=== PATIENT | female | born 1935 | race Caucasian/White ===

== ENCOUNTER 2017-06-14 19:55 | Inpatient (IN) | payer MEDICARE, MEDICAID ==
[~2017-06-14] VITALS: Ht 157.5 cm; Wt 74.0 kg
[~2017-06-14 19:55] MED LIST: ALIS150T PO; AMLO10TA PO; CALC-793 PO; FURO-150 PO; GABA-532 PO; HYDR-565 PO; HYDR500C2 PO; LACT1CAP65 PO; MAGN400T29 PO; PANT-47 PO; PHYT100T PO; VALS320T2 PO
[2017-06-14] MEDS ORDERED: morphine 5 MG/ML injection IV ONE (20:45)
[2017-06-14] MEDS ORDERED: ondansetron/PF 4mg/2ml inj IV ONE (20:45)
[2017-06-14] MEDS ORDERED: temazepam 15mg capsule PO PRN (21:00)
[2017-06-14 21:21] LABS: BASOPHILS # (AUTO) 0.1 X10'3 (0-0.2); BASOPHILS % (AUTO) 0.8 % (0-1); EOSINOPHILS # (AUTO) 0.4 X10'3 (0-0.9); EOSINOPHILS % (AUTO) 2.5 % (0-6); HEMATOCRIT 37.3 % (35.0-45.0); HEMOGLOBIN 11.8 g/dl (12.0-16.0); LYMPHOCYTES # (AUTO) 1.5 X10'3 (1.1-4.8); LYMPHOCYTES % (AUTO) 10.6 % (21-51); MEAN CORPUSCULAR HEMOGLOBIN 32.9 PG (27.0-31.0); MEAN CORPUSCULAR HGB CONC 31.6 % (33.0-36.5); MEAN PLATELET VOLUME 7.4 FL (7.4-10.4); MONOCYTES # (AUTO) 0.5 X10'3 (0-0.9); MONOCYTES % (AUTO) 3.3 % (2-12); NEUTROPHILS % (AUTO) 82.8 % (42-75); PLATELET COUNT 432 X10'3 (140-440); RED BLOOD COUNT 3.58 X10'6 (4.20-5.60); RED CELL DISTRIBUTION WIDTH 27.1 % (11.5-14.5); WHITE BLOOD COUNT 14.5 X10'3 (4.5-11.0)
[2017-06-14] MEDS ORDERED: morphine sulfate 8 MG/ML SYRINGE IV ONE ×3 (21:30→23:55)
[2017-06-14 21:32] LABS: PROTHROMBIN TIME 10.3 SECONDS (9.0-12.0)
[2017-06-14 21:35] LABS: ALANINE AMINOTRANSFERASE 14 U/L (12-78); ALBUMIN 3.2 G/DL (3.4-5.0); ALBUMIN/GLOBULIN RATIO 0.8 (1.1-1.5); ALKALINE PHOSPHATASE 148 IU/L (46-116); ANION GAP 8 (8-16); ASPARTATE AMINO TRANSFERASE 11 U/L (10-37); BILIRUBIN,TOTAL 0.3 MG/DL (0.1-1.0); BLOOD UREA NITROGEN 19 MG/DL (7-18); BUN/CREATININE RATIO 24.7 (6.6-38.0); CALCIUM 9.2 MG/DL (8.5-10.1); CHLORIDE 102 MMOL/L (99-107); CREATININE 0.77 MG/DL (0.40-0.90); GLUCOSE 105 MG/DL (70-104); POTASSIUM 3.9 MMOL/L (3.5-5.1); SODIUM 139 MMOL/L (135-145); TOTAL CARBON DIOXIDE 28.7 MMOL/L (24-32); TOTAL PROTEIN 7.4 G/DL (6.4-8.2); eGFR 71 ML/MIN
[2017-06-14 21:57] LABS: ANISOCYTOSIS 3+; PLATELET ESTIMATE NORMAL
[2017-06-14 21:58] LABS: POIKILOCYTOSIS FEW
[2017-06-14 22:01] LABS: POLYCHROMASIA FEW; STOMATOCYTES 2+
[2017-06-14 22:15] LABS: CLARITY,URINE CLOUDY (Clear); COLOR,URINE STRAW (Yellow); GLUCOSE, URINE NEGATIVE (Neg); KETONES,URINE NEGATIVE (Neg); LEUKOCYTE ESTERASE ,URINE SMALL (Neg); NITRITES, URINE POSITIVE (Neg); OCCULT BLOOD,URINE MODERATE (Neg); PROTEIN,URINE NEGATIVE (Neg); UROBILINOGEN,URINE 0.2 E.U/dL (0.2-1.0)
[2017-06-14] MEDS ORDERED: diazepam 5mg tablet PO ONE (22:20)
[2017-06-14 22:21] LABS: BACTERIA,URINE 4+ /HPF (Neg); RBC,URINE 0-2 /HPF (0-2); SQUAMOUS EPITHELIAL CELL,UR MANY /LPF (FEW)
[2017-06-14 22:22] LABS: UA COLLECTION TYPE STRAIGHT CATH
[2017-06-14] MEDS ORDERED: cefTRIAXone 1g/NS 100ml IVPB 100 ML IV ONE (23:45)
[2017-06-14] MEDS: normal saline 1000ml 1,000 ML IV SCH (23:56)
[2017-06-15] MEDS ORDERED: magnesium hydroxide 30ml (MOM) UD suspension PO PRN
[2017-06-15] MEDS ORDERED: acetaminophen 325mg tablet PO PRN ×2
[2017-06-15] MEDS ORDERED: HYDROcodone/acetaminophen 5mg/325mg tablet PO PRN
[2017-06-15] MEDS ORDERED: diphenhydrAMINE 25mg capsule PO PRN
[2017-06-15] MEDS ORDERED: ondansetron/PF 4mg/2ml inj IV PRN
[2017-06-15] MEDS ORDERED: mag hydrox/Alum hydrox/simeth 30ml oral suspension PO PRN
[2017-06-15] MEDS ORDERED: acetaminophen 650mg rectal suppository RC PRN
[2017-06-15] MEDS ORDERED: metoclopramide 5 mg/ml inj IV PRN
[2017-06-15] MEDS ORDERED: bisacodyl 10mg suppository rectal RC PRN
[2017-06-15] MEDS ORDERED: morphine sulfate 8 MG/ML SYRINGE IV PRN
[2017-06-15] MEDS ORDERED: diphenhydrAMINE 50 mg/ml inj IV PRN
[2017-06-15 00:35] LABS: LIPASE 157 U/L (73-393)
[2017-06-15] MEDS: gabapentin 300mg capsule PO SCH ×3 (00:35→17:21)
[2017-06-15 02:50] VITALS: BP 137/57
[2017-06-15] MEDS: HYDROcodone/acetaminophen 10/325mg tab PO PRN (05:33)
[2017-06-15 06:00] VITALS: BP 129/56
[2017-06-15 06:23] LABS: BASOPHILS # (AUTO) 0.1 X10'3 (0-0.2); BASOPHILS % (AUTO) 0.7 % (0-1); EOSINOPHILS # (AUTO) 0.3 X10'3 (0-0.9); EOSINOPHILS % (AUTO) 2.1 % (0-6); HEMATOCRIT 36.8 % (35.0-45.0); HEMOGLOBIN 11.4 g/dl (12.0-16.0); LYMPHOCYTES # (AUTO) 2.1 X10'3 (1.1-4.8); LYMPHOCYTES % (AUTO) 14.7 % (21-51); MEAN CORPUSCULAR HEMOGLOBIN 32.2 PG (27.0-31.0); MEAN CORPUSCULAR HGB CONC 30.9 % (33.0-36.5); MEAN CORPUSCULAR VOLUME 104.1 FL (78-98); MONOCYTES # (AUTO) 0.5 X10'3 (0-0.9); MONOCYTES % (AUTO) 3.9 % (2-12); NEUTROPHILS % (AUTO) 78.6 % (42-75); PLATELET COUNT 360 X10'3 (140-440); RED BLOOD COUNT 3.53 X10'6 (4.20-5.60); RED CELL DISTRIBUTION WIDTH 26.7 % (11.5-14.5)
[2017-06-15 07:00] LABS: ALANINE AMINOTRANSFERASE 13 U/L (12-78); ALBUMIN 2.9 G/DL (3.4-5.0); ALBUMIN/GLOBULIN RATIO 0.8 (1.1-1.5); ALKALINE PHOSPHATASE 124 IU/L (46-116); ANION GAP 8 (8-16); ASPARTATE AMINO TRANSFERASE 13 U/L (10-37); BILIRUBIN,TOTAL 0.2 MG/DL (0.1-1.0); BLOOD UREA NITROGEN 15 MG/DL (7-18); BUN/CREATININE RATIO 21.1 (6.6-38.0); CALCIUM 9.1 MG/DL (8.5-10.1); CHLORIDE 106 MMOL/L (99-107); CREATININE 0.71 MG/DL (0.40-0.90); GLUCOSE 86 MG/DL (70-104); SODIUM 142 MMOL/L (135-145); TOTAL CARBON DIOXIDE 27.6 MMOL/L (24-32); TOTAL PROTEIN 6.6 G/DL (6.4-8.2); eGFR 78 ML/MIN
[2017-06-15] MEDS: amLODIPine 5mg tablet PO SCH (09:09)
[2017-06-15] MEDS: docusate sod 100mg capsule PO SCH ×2 (09:09→19:45)
[2017-06-15] MEDS: cefTRIAXone 1g/NS 100ml IVPB 100 ML IV SCH (09:09)
[2017-06-15] MEDS: calcium carbonate/vitamin D3 tablet PO SCH (09:10)
[2017-06-15] MEDS: pantoprazole 40mg Tablet.DR PO SCH (09:10)
[2017-06-15 10:00] VITALS: BP 104/46
[2017-06-15] MEDS ORDERED: PHYTONADIONE PO (13:45)
[2017-06-15] MEDS ORDERED: SUPER K PO (14:29)
[2017-06-15 18:00] VITALS: BP 150/64
[2017-06-15] MEDS: cyclobenzaprine 10mg tablet PO PRN (21:58)
[2017-06-15] MEDS: morphine sulfate 8 MG/ML SYRINGE IV PRN (22:02)
[2017-06-15 22:13] VITALS: BP 154/72
[2017-06-16] MEDS: gabapentin 300mg capsule PO SCH ×3 (01:17→16:10)
[2017-06-16] MEDS: cyclobenzaprine 10mg tablet PO PRN ×2 (05:48→14:04)
[2017-06-16] MEDS: morphine sulfate 8 MG/ML SYRINGE IV PRN ×3 (05:49→15:35)
[2017-06-16 06:00] VITALS: BP 172/73
[2017-06-16 07:36] LABS: BASOPHILS # (AUTO) 0.1 X10'3 (0-0.2); BASOPHILS % (AUTO) 0.9 % (0-1); EOSINOPHILS # (AUTO) 0.4 X10'3 (0-0.9); EOSINOPHILS % (AUTO) 2.5 % (0-6); HEMATOCRIT 36.3 % (35.0-45.0); HEMOGLOBIN 11.3 g/dl (12.0-16.0); LYMPHOCYTES # (AUTO) 1.7 X10'3 (1.1-4.8); LYMPHOCYTES % (AUTO) 12.2 % (21-51); MEAN CORPUSCULAR HEMOGLOBIN 32.4 PG (27.0-31.0); MEAN CORPUSCULAR HGB CONC 31.2 % (33.0-36.5); MONOCYTES # (AUTO) 0.6 X10'3 (0-0.9); MONOCYTES % (AUTO) 4.3 % (2-12); NEUTROPHILS # (AUTO) 11.3 X10'3 (1.8-7.7); NEUTROPHILS % (AUTO) 80.1 % (42-75); PLATELET COUNT 398 X10'3 (140-440); RED BLOOD COUNT 3.49 X10'6 (4.20-5.60); RED CELL DISTRIBUTION WIDTH 27.1 % (11.5-14.5); WHITE BLOOD COUNT 14.1 X10'3 (4.5-11.0)
[2017-06-16] MEDS: docusate sod 100mg capsule PO SCH ×2 (07:56→20:14)
[2017-06-16] MEDS: PHYTONADIONE PO SCH (07:56)
[2017-06-16] MEDS: calcium carbonate/vitamin D3 tablet PO SCH (07:56)
[2017-06-16] MEDS: amLODIPine 5mg tablet PO SCH (07:56)
[2017-06-16] MEDS: pantoprazole 40mg Tablet.DR PO SCH (07:56)
[2017-06-16] MEDS: cefTRIAXone 1g/NS 100ml IVPB 100 ML IV SCH (07:57)
[2017-06-16 08:12] LABS: ALANINE AMINOTRANSFERASE 14 U/L (12-78); ALBUMIN 2.8 G/DL (3.4-5.0); ALBUMIN/GLOBULIN RATIO 0.7 (1.1-1.5); ALKALINE PHOSPHATASE 146 IU/L (46-116); ANION GAP 8 (8-16); ASPARTATE AMINO TRANSFERASE 12 U/L (10-37); BILIRUBIN,TOTAL 0.4 MG/DL (0.1-1.0); BLOOD UREA NITROGEN 13 MG/DL (7-18); BUN/CREATININE RATIO 18.6 (6.6-38.0); CHLORIDE 107 MMOL/L (99-107); GLUCOSE 88 MG/DL (70-104); POTASSIUM 4.3 MMOL/L (3.5-5.1); SODIUM 141 MMOL/L (135-145); TOTAL CARBON DIOXIDE 26.4 MMOL/L (24-32); TOTAL PROTEIN 6.6 G/DL (6.4-8.2); eGFR 80 ML/MIN
[2017-06-16 09:14] LABS: ANISOCYTOSIS 3+; PLATELET ESTIMATE NORMAL; POLYCHROMASIA 1+; TOTAL CELLS COUNTED 100; TOXIC GRANULATION 2+
[2017-06-16 09:16] LABS: ELLIPTOCYTES FEW; LARGE PLATELETS FEW; POIKILOCYTOSIS 1+; TEAR DROP CELLS FEW
[2017-06-16 10:00] VITALS: BP 110/70
[2017-06-16] MEDS: lactobacillus rhamnosus 10,000 MMU CELLS/CAPSULE PO SCH (17:19)
[2017-06-16 18:00] VITALS: BP 122/58
[2017-06-16 22:19] VITALS: BP 137/71
[2017-06-17] MEDS: gabapentin 300mg capsule PO SCH ×2 (00:02→09:07)
[2017-06-17] MEDS: morphine sulfate 8 MG/ML SYRINGE IV PRN ×2 (04:29→09:06)
[2017-06-17 06:00] VITALS: BP 132/66
[2017-06-17 07:10] LABS: BASOPHILS # (AUTO) 0.2 X10'3 (0-0.2); BASOPHILS % (AUTO) 1.1 % (0-1); EOSINOPHILS # (AUTO) 0.3 X10'3 (0-0.9); EOSINOPHILS % (AUTO) 1.6 % (0-6); HEMATOCRIT 39.4 % (35.0-45.0); HEMOGLOBIN 12.5 g/dl (12.0-16.0); LYMPHOCYTES # (AUTO) 2.4 X10'3 (1.1-4.8); LYMPHOCYTES % (AUTO) 12.8 % (21-51); MEAN CORPUSCULAR HEMOGLOBIN 32.8 PG (27.0-31.0); MEAN CORPUSCULAR HGB CONC 31.6 % (33.0-36.5); MEAN CORPUSCULAR VOLUME 103.8 FL (78-98); MEAN PLATELET VOLUME 8.2 FL (7.4-10.4); MONOCYTES # (AUTO) 0.6 X10'3 (0-0.9); MONOCYTES % (AUTO) 2.9 % (2-12); NEUTROPHILS # (AUTO) 15.4 X10'3 (1.8-7.7); NEUTROPHILS % (AUTO) 81.6 % (42-75); PLATELET COUNT 386 X10'3 (140-440); RED BLOOD COUNT 3.79 X10'6 (4.20-5.60); WHITE BLOOD COUNT 18.8 X10'3 (4.5-11.0)
[2017-06-17 07:30] LABS: ALANINE AMINOTRANSFERASE 16 U/L (12-78); ALBUMIN/GLOBULIN RATIO 0.7 (1.1-1.5); ALKALINE PHOSPHATASE 154 IU/L (46-116); ANION GAP 9 (8-16); ASPARTATE AMINO TRANSFERASE 17 U/L (10-37); BILIRUBIN,TOTAL 0.6 MG/DL (0.1-1.0); BLOOD UREA NITROGEN 12 MG/DL (7-18); BUN/CREATININE RATIO 16.2 (6.6-38.0); CALCIUM 9.2 MG/DL (8.5-10.1); CHLORIDE 103 MMOL/L (99-107); CREATININE 0.74 MG/DL (0.40-0.90); GLUCOSE 90 MG/DL (70-104); POTASSIUM 4.3 MMOL/L (3.5-5.1); SODIUM 139 MMOL/L (135-145); TOTAL CARBON DIOXIDE 27.3 MMOL/L (24-32); TOTAL PROTEIN 7.3 G/DL (6.4-8.2); eGFR 75 ML/MIN
[2017-06-17 07:52] LABS: ANISOCYTOSIS 3+; PLATELET ESTIMATE NORMAL; POLYCHROMASIA FEW
[2017-06-17 07:53] LABS: STOMATOCYTES 1+; TARGET CELLS FEW
[2017-06-17] MEDS: normal saline 1000ml 1,000 ML IV SCH (09:05)
[2017-06-17] MEDS: cefTRIAXone 1g/NS 100ml IVPB 100 ML IV SCH (09:06)
[2017-06-17] MEDS: lactobacillus rhamnosus 10,000 MMU CELLS/CAPSULE PO SCH (09:06)
[2017-06-17] MEDS: amLODIPine 5mg tablet PO SCH (09:07)
[2017-06-17] MEDS: calcium carbonate/vitamin D3 tablet PO SCH (09:07)
[2017-06-17] MEDS: docusate sod 100mg capsule PO SCH (09:07)
[2017-06-17] MEDS: PHYTONADIONE PO SCH (09:08)
[2017-06-17] MEDS: pantoprazole 40mg Tablet.DR PO SCH (09:08)
[2017-06-17 11:00] VITALS: BP 124/55
[2017-06-17] MEDS: cyclobenzaprine 10mg tablet PO PRN (13:24)
[2017-06-17] MEDS: HYDROcodone/acetaminophen 10/325mg tab PO PRN (13:24)
== END 2017-06-17 15:15 | DRG 543 ==
LOC: ER 19:55 → ED HOLD 23:56 → EDBEDREQ 06-15 00:57 → ORTHO 4S 06-15 02:00
PROVIDERS: ADMIT Family Medicine; ATTEND Internal Medicine
DX: M48.54XA Collapsed vertebra, not elsewhere classified, thoracic region, initial encounter for fracture (principal); C91.10 Chronic lymphocytic leukemia of B-cell type not having achieved remission; L89.152 Pressure ulcer of sacral region, stage 2; I11.0 Hypertensive heart disease with heart failure; G62.9 Polyneuropathy, unspecified; I50.32 Chronic diastolic (congestive) heart failure; N39.0 Urinary tract infection, site not specified; J44.9 Chronic obstructive pulmonary disease, unspecified; K59.01 Slow transit constipation; M81.0 Age-related osteoporosis without current pathological fracture; G89.29 Other chronic pain; M19.90 Unspecified osteoarthritis, unspecified site; M54.9 Dorsalgia, unspecified; Z88.1 Allergy status to other antibiotic agents; Z79.899 Other long term (current) drug therapy
CPT/HCPCS: 36415; 72128; 74176; 80053; 81001; 83690; 83735; 83880; 84443; 85025; 85610; 87070; 87077; 87088; 87186; 96374; 96376; 97116; 97530; 99285; A6209; A6213; J0696; J2270; J7030

== ENCOUNTER 2018-04-25 19:24 | Inpatient (IN) | payer MEDICARE, MEDICAID ==
[~2018-04-25] VITALS: Ht 154.9 cm; Wt 54.0 kg
[~2018-04-25 19:24] MED LIST changes: +HYDR-4353 PO; -HYDR-565 PO; -PHYT100T PO; +SUPER K PO
[2018-04-25] MEDS ORDERED: acetaminophen 325mg tablet PO STA (19:34)
[2018-04-25] MEDS ORDERED: levoFLOXACIN-Levaquin 750MG/D5 150 ML IV ONE (19:35)
[2018-04-25] MEDS ORDERED: normal saline 1000ML IV soln IVB ONE (19:45)
[2018-04-25 20:20] LABS: CLARITY,URINE CLOUDY (Clear); COLOR,URINE YELLOW (Yellow); GLUCOSE, URINE NEGATIVE (Neg); KETONES,URINE NEGATIVE (Neg); LEUKOCYTE ESTERASE ,URINE LARGE (Neg); NITRITES, URINE POSITIVE (Neg); OCCULT BLOOD,URINE TRACE-INTACT (Neg); PROTEIN,URINE NEGATIVE (Neg); UROBILINOGEN,URINE 0.2 E.U/dL (0.2-1.0)
[2018-04-25 20:28] LABS: UA COLLECTION TYPE STRAIGHT CATH
[2018-04-25 20:29] LABS: BACTERIA,URINE 4+ /HPF (Neg); MUCUS STRANDS NONE SEEN /LPF (Neg); SQUAMOUS EPITHELIAL CELL,UR NONE SEEN /LPF (FEW); WBC,URINE TNTC /HPF (0-4)
[2018-04-25 20:44] LABS: BASOPHILS % (AUTO) 0.1 % (0-1); EOSINOPHILS # (AUTO) 0.1 X10'3 (0-0.9); EOSINOPHILS % (AUTO) 0.3 % (0-6); HEMATOCRIT 38.6 % (35.0-45.0); LYMPHOCYTES # (AUTO) 0.4 X10'3 (1.1-4.8); LYMPHOCYTES % (AUTO) 2.3 % (21-51); MEAN CORPUSCULAR HEMOGLOBIN 34.8 PG (27.0-31.0); MEAN CORPUSCULAR VOLUME 112.4 FL (78-98); MEAN PLATELET VOLUME 8.2 FL (7.4-10.4); MONOCYTES # (AUTO) 0.2 X10'3 (0-0.9); MONOCYTES % (AUTO) 1.1 % (2-12); NEUTROPHILS # (AUTO) 17.6 X10'3 (1.8-7.7); NEUTROPHILS % (AUTO) 96.2 % (42-75); PLATELET COUNT 378 X10'3 (140-440); RED BLOOD COUNT 3.44 X10'6 (4.20-5.60); WHITE BLOOD COUNT 18.3 X10'3 (4.5-11.0)
[2018-04-25 21:00] LABS: ALANINE AMINOTRANSFERASE 9 U/L (12-78); ALBUMIN 2.5 G/DL (3.4-5.0); ALBUMIN/GLOBULIN RATIO 0.7 (1.1-1.5); ALKALINE PHOSPHATASE 132 IU/L (46-116); ANION GAP 9 (8-16); ASPARTATE AMINO TRANSFERASE 14 U/L (10-37); BILIRUBIN,TOTAL 0.5 MG/DL (0.1-1.0); BLOOD UREA NITROGEN 12 MG/DL (7-18); BUN/CREATININE RATIO 19.7 (6.6-38.0); CALCIUM 7.2 MG/DL (8.5-10.1); CHLORIDE 104 MMOL/L (99-107); CREATININE 0.61 MG/DL (0.40-0.90); GLUCOSE 108 MG/DL (70-104); POTASSIUM 3.8 MMOL/L (3.5-5.1); SODIUM 137 MMOL/L (135-145); TOTAL CARBON DIOXIDE 23.6 MMOL/L (24-32); TOTAL PROTEIN 6.3 G/DL (6.4-8.2); eGFR > 90 ML/MIN
[2018-04-25] MEDS ORDERED: temazepam 15mg capsule PO PRN (21:00)
[2018-04-25 21:07] LABS: MAGNESIUM 1.7 MG/DL (1.5-2.4)
[2018-04-25 21:36] LABS: INR 1.1 INR; PARTIAL THROMBOPLASTIN TIME 35 SECONDS (22-32); PROTHROMBIN TIME 11.4 SECONDS (9.0-12.0)
[2018-04-25 21:38] LABS: NUCLEATED RED BLOOD CELLS 1 /100WBC (0-0); TOTAL CELLS COUNTED 100
[2018-04-25 21:40] LABS: ANISOCYTOSIS 2+; PLATELET ESTIMATE NORMAL; POLYCHROMASIA FEW
[2018-04-25 21:41] LABS: LARGE PLATELETS FEW; SCHISTOCYTES FEW; TOXIC GRANULATION 2+
[2018-04-25] MEDS ORDERED: BONE HEALTH PO (21:41)
[2018-04-25] MEDS ORDERED: HYDR500C18 PO (21:41)
[2018-04-25] MEDS ORDERED: OMEP-50 PO (21:41)
[2018-04-25] MEDS ORDERED: GABA600T2 PO (21:41)
[2018-04-25] MEDS ORDERED: MAGN250T2 PO (21:41)
[2018-04-25] MEDS ORDERED: OLME40TA13 PO (21:41)
[2018-04-25] MEDS ORDERED: OXYC10TA57 PO (21:41)
[2018-04-25] MEDS ORDERED: ASPI81TA46 PO (21:41)
[2018-04-25] MEDS ORDERED: HYDROcodone/acetaminophen 10/325mg tab PO PRN (21:45)
[2018-04-25] MEDS ORDERED: magnesium hydroxide 30ml (MOM) UD suspension PO PRN (21:45)
[2018-04-25] MEDS ORDERED: diphenhydrAMINE 50 mg/ml inj IV PRN (21:45)
[2018-04-25] MEDS ORDERED: diphenhydrAMINE 25mg capsule PO PRN (21:45)
[2018-04-25] MEDS ORDERED: HYDROcodone/acetaminophen 5mg/325mg tablet PO PRN (21:45)
[2018-04-25] MEDS ORDERED: metoclopramide 5 mg/ml inj IV PRN (21:45)
[2018-04-25] MEDS ORDERED: morphine 2 MG/ML inj. syringe IV PRN ×2 (21:45)
[2018-04-25] MEDS ORDERED: mag hydrox/Alum hydrox/simeth 30ml oral suspension PO PRN (21:45)
[2018-04-25] MEDS ORDERED: acetaminophen 325mg tablet PO PRN ×2 (21:45)
[2018-04-25] MEDS ORDERED: ondansetron/PF 4mg/2ml inj IV PRN (21:45)
[2018-04-25] MEDS ORDERED: acetaminophen 650mg rectal suppository RC PRN (21:45)
[2018-04-25] MEDS ORDERED: HYDROmorphone 1 mg/ml syringe IV PRN ×2 (21:45)
[2018-04-25] MEDS: normal saline 1000ml 1,000 ML IV SCH (21:58)
[2018-04-25 22:14] LABS: HEMOGLOBIN A1C 5.1 % (4.5-6.2); LIPASE 57 U/L (73-393); PHOSPHORUS 2.6 MG/DL (2.3-4.5); TROPONIN I < 0.04 NG/ML (0.0-0.05)
[2018-04-26] VITALS: BP 111/40
[2018-04-26 04:45] LABS: BASOPHILS # (AUTO) 0.1 X10'3 (0-0.2); BASOPHILS % (AUTO) 0.4 % (0-1); EOSINOPHILS % (AUTO) 0.1 % (0-6); HEMATOCRIT 32.8 % (35.0-45.0); LYMPHOCYTES # (AUTO) 1.2 X10'3 (1.1-4.8); LYMPHOCYTES % (AUTO) 6.8 % (21-51); MEAN CORPUSCULAR HEMOGLOBIN 34.5 PG (27.0-31.0); MEAN CORPUSCULAR HGB CONC 30.6 % (33.0-36.5); MEAN CORPUSCULAR VOLUME 112.8 FL (78-98); MEAN PLATELET VOLUME 8.1 FL (7.4-10.4); MONOCYTES # (AUTO) 0.3 X10'3 (0-0.9); MONOCYTES % (AUTO) 1.6 % (2-12); NEUTROPHILS # (AUTO) 16.2 X10'3 (1.8-7.7); NEUTROPHILS % (AUTO) 91.1 % (42-75); PLATELET COUNT 344 X10'3 (140-440); RED CELL DISTRIBUTION WIDTH 20.1 % (11.5-14.5); WHITE BLOOD COUNT 17.8 X10'3 (4.5-11.0)
[2018-04-26 04:59] LABS: ALANINE AMINOTRANSFERASE 9 U/L (12-78); ALBUMIN 2.3 G/DL (3.4-5.0); ALBUMIN/GLOBULIN RATIO 0.6 (1.1-1.5); ALKALINE PHOSPHATASE 101 IU/L (46-116); ANION GAP 8 (8-16); ASPARTATE AMINO TRANSFERASE 8 U/L (10-37); BILIRUBIN,TOTAL 0.5 MG/DL (0.1-1.0); BLOOD UREA NITROGEN 13 MG/DL (7-18); BUN/CREATININE RATIO 17.3 (6.6-38.0); CALCIUM 7.5 MG/DL (8.5-10.1); CHLORIDE 103 MMOL/L (99-107); CREATININE 0.75 MG/DL (0.40-0.90); GLUCOSE 96 MG/DL (70-104); POTASSIUM 4.3 MMOL/L (3.5-5.1); SODIUM 135 MMOL/L (135-145); TOTAL CARBON DIOXIDE 24.1 MMOL/L (24-32); TOTAL PROTEIN 5.9 G/DL (6.4-8.2); eGFR 74 ML/MIN
[2018-04-26 05:25] LABS: ANISOCYTOSIS 2+; MICROCYTOSIS 1+; PLATELET ESTIMATE NORMAL
[2018-04-26 07:00] VITALS: BP 117/39
[2018-04-26] MEDS ORDERED: OLMESARTAN MEDOXOMIL PO SCH (08:00)
[2018-04-26] MEDS ORDERED: [UNRECOGNIZED DRUG - OTHER] PO SCH (08:00)
[2018-04-26] MEDS ORDERED: non-formulary drug (Omeprazole 1 TAB) PO SCH (08:00)
[2018-04-26] MEDS ORDERED: non-formulary drug (Amlodipine Besylate 1 TABLET) PO SCH (08:00)
[2018-04-26] MEDS: TEKTURNA PO SCH (08:00)
[2018-04-26] MEDS ORDERED: oxyCODONE SR 10mg (sust. release) tab PO SCH (08:00)
[2018-04-26] MEDS: pantoprazole 40mg Tablet.DR PO SCH (08:22)
[2018-04-26] MEDS: heparin, porcine 5000 units/ml vial SQ SCH ×2 (08:22→19:07)
[2018-04-26] MEDS: amLODIPine 5mg tablet PO SCH (08:22)
[2018-04-26] MEDS: gabapentin 300mg capsule PO SCH ×3 (08:23→21:15)
[2018-04-26] MEDS: losartan 50mg tablet PO SCH (08:23)
[2018-04-26] MEDS: aspirin 81mg tablet.DR PO SCH (08:23)
[2018-04-26] MEDS: docusate sod 100mg capsule PO SCH ×2 (08:23→19:07)
[2018-04-26] MEDS: CefTRIAXone/D5W-Rocephin 1gm 50 ML IV SCH ×2 (08:24→19:07)
[2018-04-26] MEDS ORDERED: OXYC-658 PO (08:40)
[2018-04-26] MEDS: oxyCODONE IR 5mg (immed. release) tablet PO SCH (08:51)
[2018-04-26 11:00] VITALS: BP_SYST 128; BP_SYST 95; BP_DIAS 57; BP_DIAS 81
[2018-04-26] MEDS: normal saline 1000ml 1,000 ML IV SCH (17:55)
[2018-04-26] MEDS: lactobacillus rhamnosus 10,000 MMU CELLS/CAPSULE PO SCH (19:07)
[2018-04-26 20:00] VITALS: BP 121/79
[2018-04-26] MEDS ORDERED: non-formulary drug (Gabapentin 1 TAB) PO SCH (21:00)
[2018-04-26] MEDS: nystatin 15 GM powder TP SCH (21:15)
[2018-04-27] VITALS: BP 141/45
[2018-04-27 05:21] LABS: ALANINE AMINOTRANSFERASE 9 U/L (12-78); ALBUMIN 2.2 G/DL (3.4-5.0); ALBUMIN/GLOBULIN RATIO 0.6 (1.1-1.5); ALKALINE PHOSPHATASE 101 IU/L (46-116); ANION GAP 10 (8-16); ASPARTATE AMINO TRANSFERASE 11 U/L (10-37); BILIRUBIN,TOTAL 0.2 MG/DL (0.1-1.0); BLOOD UREA NITROGEN 9 MG/DL (7-18); BUN/CREATININE RATIO 15.8 (6.6-38.0); CALCIUM 7.6 MG/DL (8.5-10.1); CHLORIDE 105 MMOL/L (99-107); CREATININE 0.57 MG/DL (0.40-0.90); GLUCOSE 77 MG/DL (70-104); SODIUM 137 MMOL/L (135-145); TOTAL CARBON DIOXIDE 22.5 MMOL/L (24-32); eGFR > 90 ML/MIN
[2018-04-27 05:26] LABS: BASOPHILS # (AUTO) 0.2 X10'3 (0-0.2); BASOPHILS % (AUTO) 1.1 % (0-1); EOSINOPHILS # (AUTO) 0.1 X10'3 (0-0.9); EOSINOPHILS % (AUTO) 0.9 % (0-6); HEMATOCRIT 33.6 % (35.0-45.0); HEMOGLOBIN 10.2 g/dl (12.0-16.0); LYMPHOCYTES # (AUTO) 1.3 X10'3 (1.1-4.8); MEAN CORPUSCULAR HEMOGLOBIN 34.3 PG (27.0-31.0); MEAN CORPUSCULAR HGB CONC 30.4 % (33.0-36.5); MEAN CORPUSCULAR VOLUME 112.9 FL (78-98); MEAN PLATELET VOLUME 8.2 FL (7.4-10.4); MONOCYTES # (AUTO) 0.3 X10'3 (0-0.9); MONOCYTES % (AUTO) 2.5 % (2-12); NEUTROPHILS # (AUTO) 11.3 X10'3 (1.8-7.7); NEUTROPHILS % (AUTO) 85.5 % (42-75); PLATELET COUNT 320 X10'3 (140-440); RED BLOOD COUNT 2.98 X10'6 (4.20-5.60); WHITE BLOOD COUNT 13.3 X10'3 (4.5-11.0)
[2018-04-27 05:29] LABS: ANISOCYTOSIS 2+; PLATELET ESTIMATE NORMAL; SCHISTOCYTES FEW; SPHEROCYTES FEW
[2018-04-27 07:50] VITALS: BP 131/54
[2018-04-27] MEDS: TEKTURNA PO SCH (08:00)
[2018-04-27] MEDS: lactobacillus rhamnosus 10,000 MMU CELLS/CAPSULE PO SCH ×2 (08:03→21:27)
[2018-04-27] MEDS: gabapentin 300mg capsule PO SCH ×3 (08:03→21:27)
[2018-04-27] MEDS: docusate sod 100mg capsule PO SCH ×2 (08:03→21:27)
[2018-04-27] MEDS: pantoprazole 40mg Tablet.DR PO SCH (08:03)
[2018-04-27] MEDS: losartan 50mg tablet PO SCH (08:04)
[2018-04-27] MEDS: amLODIPine 5mg tablet PO SCH (08:04)
[2018-04-27] MEDS: aspirin 81mg tablet.DR PO SCH (08:04)
[2018-04-27] MEDS: oxyCODONE IR 5mg (immed. release) tablet PO SCH (08:04)
[2018-04-27] MEDS: CefTRIAXone/D5W-Rocephin 1gm 50 ML IV SCH ×2 (08:05→21:21)
[2018-04-27] MEDS: nystatin 15 GM powder TP SCH ×3 (08:05→21:27)
[2018-04-27] MEDS: heparin, porcine 5000 units/ml vial SQ SCH ×2 (08:05→21:26)
[2018-04-27 11:01] VITALS: BP 145/71
[2018-04-27] MEDS: normal saline 1000ml 1,000 ML IV SCH (14:26)
[2018-04-27] MEDS ORDERED: lactose-reduced food (Ensure Enlive) - 237ml bottle PO SCH (17:30)
[2018-04-27 20:00] VITALS: BP 136/52
[2018-04-28] VITALS: BP 129/50
[2018-04-28 05:13] LABS: BASOPHILS # (AUTO) 0.1 X10'3 (0-0.2); BASOPHILS % (AUTO) 0.4 % (0-1); EOSINOPHILS # (AUTO) 0.1 X10'3 (0-0.9); EOSINOPHILS % (AUTO) 0.8 % (0-6); HEMATOCRIT 34.9 % (35.0-45.0); HEMOGLOBIN 10.6 g/dl (12.0-16.0); LYMPHOCYTES # (AUTO) 0.8 X10'3 (1.1-4.8); LYMPHOCYTES % (AUTO) 6.1 % (21-51); MEAN CORPUSCULAR HEMOGLOBIN 34.3 PG (27.0-31.0); MEAN CORPUSCULAR HGB CONC 30.4 % (33.0-36.5); MEAN CORPUSCULAR VOLUME 112.9 FL (78-98); MEAN PLATELET VOLUME 8.2 FL (7.4-10.4); MONOCYTES # (AUTO) 0.5 X10'3 (0-0.9); MONOCYTES % (AUTO) 3.7 % (2-12); PLATELET COUNT 354 X10'3 (140-440); RED BLOOD COUNT 3.09 X10'6 (4.20-5.60); RED CELL DISTRIBUTION WIDTH 20.3 % (11.5-14.5); WHITE BLOOD COUNT 13.5 X10'3 (4.5-11.0)
[2018-04-28 06:18] LABS: ALANINE AMINOTRANSFERASE 11 U/L (12-78); ALBUMIN 2.3 G/DL (3.4-5.0); ALBUMIN/GLOBULIN RATIO 0.6 (1.1-1.5); ALKALINE PHOSPHATASE 102 IU/L (46-116); ANION GAP 10 (8-16); ASPARTATE AMINO TRANSFERASE 11 U/L (10-37); BILIRUBIN,TOTAL 0.4 MG/DL (0.1-1.0); BLOOD UREA NITROGEN 8 MG/DL (7-18); BUN/CREATININE RATIO 16.7 (6.6-38.0); CALCIUM 8.1 MG/DL (8.5-10.1); CHLORIDE 107 MMOL/L (99-107); CREATININE 0.48 MG/DL (0.40-0.90); GLUCOSE 83 MG/DL (70-104); POTASSIUM 4.1 MMOL/L (3.5-5.1); SODIUM 139 MMOL/L (135-145); TOTAL CARBON DIOXIDE 21.8 MMOL/L (24-32); eGFR > 90 ML/MIN
[2018-04-28 07:23] LABS: ANISOCYTOSIS 2+; PLATELET ESTIMATE NORMAL
[2018-04-28 07:24] LABS: POLYCHROMASIA FEW; SCHISTOCYTES 1+; SPHEROCYTES FEW
[2018-04-28 07:46] VITALS: BP 126/52
[2018-04-28] MEDS: TEKTURNA PO SCH (08:00)
[2018-04-28] MEDS: normal saline 1000ml 1,000 ML IV SCH (09:44)
[2018-04-28] MEDS: lactobacillus rhamnosus 10,000 MMU CELLS/CAPSULE PO SCH (10:02)
[2018-04-28] MEDS: aspirin 81mg tablet.DR PO SCH (10:02)
[2018-04-28] MEDS: amLODIPine 5mg tablet PO SCH (10:02)
[2018-04-28] MEDS: gabapentin 300mg capsule PO SCH ×2 (10:02→13:41)
[2018-04-28] MEDS: docusate sod 100mg capsule PO SCH (10:02)
[2018-04-28] MEDS: oxyCODONE IR 5mg (immed. release) tablet PO SCH (10:03)
[2018-04-28] MEDS: pantoprazole 40mg Tablet.DR PO SCH (10:03)
[2018-04-28] MEDS: nystatin 15 GM powder TP SCH ×2 (10:04→13:41)
[2018-04-28] MEDS: losartan 50mg tablet PO SCH (10:04)
[2018-04-28] MEDS: heparin, porcine 5000 units/ml vial SQ SCH (10:04)
[2018-04-28] MEDS: CefTRIAXone/D5W-Rocephin 1gm 50 ML IV SCH (10:04)
[2018-04-28 12:20] VITALS: BP 136/44
[2018-04-28] MEDS ORDERED: LEVO500T2 PO (14:28)
== END 2018-04-28 17:20 | disposition home or self-care (01) | DRG 871 ==
LOC: ER 19:24 → ED HOLD 21:44 → EDBEDREQ 22:47 → SUR 3N 23:20
PROVIDERS: ADMIT Family Medicine; ATTEND Internal Medicine
DX: A41.9 Sepsis, unspecified organism (principal); G93.41 Metabolic encephalopathy; N10 Acute pyelonephritis; E86.0 Dehydration; G89.4 Chronic pain syndrome; H54.8 Legal blindness, as defined in USA; I10 Essential (primary) hypertension; J44.9 Chronic obstructive pulmonary disease, unspecified; L89.151 Pressure ulcer of sacral region, stage 1; R32 Unspecified urinary incontinence; B96.1 Klebsiella pneumoniae [K. pneumoniae] as the cause of diseases classified elsewhere; B96.89 Other specified bacterial agents as the cause of diseases classified elsewhere; M54.9 Dorsalgia, unspecified; M19.90 Unspecified osteoarthritis, unspecified site; Z88.1 Allergy status to other antibiotic agents; Z79.899 Other long term (current) drug therapy; Z79.891 Long term (current) use of opiate analgesic; Z85.6 Personal history of leukemia
CPT/HCPCS: 36415; 71045; 76775; 80053; 81001; 83036; 83605; 83690; 83735; 83880; 84100; 84145; 84484; 85025; 85610; 85730; 87040; 87070; 87077; 87088; 87186; 93005; 96365; 97116; 97161; 97530; 99285; G0378; J0696; J1644; J1956; J7030

== ENCOUNTER 2018-11-21 10:00 | Outpatient (CLI) | payer MEDICARE, MEDICAID ==
[~2018-11-21 10:00] MED LIST changes: +ASPI81TA44 PO; +GABA600T13 PO; -HYDR-4353 PO; -HYDR500C2 PO; +MAGN250T2 PO; -MAGN400T29 PO; +OLME40TA13 PO; +OMEP-50 PO; +OXYC-658 PO; +OXYC10TA57 PO; -PANT-47 PO; -SUPER K PO; -VALS320T2 PO
--- NOTE | 2018-11-21 13:06 | NUR ---
Patient arrived safely into [facility] via wheelchair, accompanied by daughter. Patient was admitted to outpatient wound care for first time visit with physician visit. No dressings in place. Patient assessed and medications and medical history reviewed. Dr. Mendoza at bedside accompanied by RN. Wound assessed an no debridement was done. Plan of care discussed with patient. Dressings placed per MD orders. Patient instructed on the signs and symptoms of infection and to call the [facility]ound Center if any occur or to go to the ED if we are closed: Increased pain in wound Increase in drainage from the wound Redness in the skin surrounding the wound Bleeding from the wound Temperature of 101 or greater Patient instructed that the weight of their body puts a large amount of pressure on their wounds. This pressure keeps the new tissue from growing and inhibits new blood vessels from forming. Explained that, if they continue to bear weight on a body part that has a wound, the time it takes to heal the wound increases, the wound may get worse or the wound may not heal at all. Patient verbalized understanding of all discharge instructions and plan of care and ambulated independently out to [facility] in stable condition with no sign or symptom of distress at time of discharge. Addendum: 11/21/18 at 1312 by Stephanie Mcarthur RN Amended: Links added.
== END 2018-11-21 23:59 | disposition home or self-care (01) ==
LOC: WOUND CARE 10:00 → EDSTATUS 10:00 → WOUND CARE 12:05
PROVIDERS: ATTEND Surgery
DX: L89.522 Pressure ulcer of left ankle, stage 2 (principal); J44.9 Chronic obstructive pulmonary disease, unspecified; I10 Essential (primary) hypertension; E78.5 Hyperlipidemia, unspecified; H54.8 Legal blindness, as defined in USA; M19.90 Unspecified osteoarthritis, unspecified site; Z96.651 Presence of right artificial knee joint
CPT/HCPCS: A4414; A6212; G0463